=== PATIENT | female | born 1955 ===

== ENCOUNTER 2016-08-22 10:09 | Day surgery (SDC) | payer SELFPAY ==
[2016-08-22 11:22] VITALS: O2SAT 98
[2016-08-22] MEDS ORDERED: Midazolam 2 MG/2 ML VIAL ONE (12:40)
[2016-08-22] MEDS ORDERED: Propofol 10 mg/ml Inj (20 ML) ONE (12:40)
[2016-08-22] MEDS ORDERED: Lactated Ringer's 500 ML IV ONE ×2 (12:44)
[2016-08-22 13:28] VITALS: TEMP 96.8
[2016-08-22 14:23] VITALS: BP 105/58; PULSE 71; RESP 15
== END 2016-08-22 14:00 | disposition home or self-care (01) ==
LOC: C.ENDO 10:09
PROVIDERS: ATTEND Internal Medicine Gastroenterology
DX: Z12.11 Encounter for screening for malignant neoplasm of colon (principal); D12.2 Benign neoplasm of ascending colon; D12.5 Benign neoplasm of sigmoid colon; E05.90 Thyrotoxicosis, unspecified without thyrotoxic crisis or storm; E78.5 Hyperlipidemia, unspecified; Z98.890 Other specified postprocedural states
CPT/HCPCS: 45380; 88305; J2250; J2704; J7120

== ENCOUNTER 2016-09-15 22:14 | Emergency (ER) | payer SELFPAY ==
[2016-09-15] MEDS ORDERED: Sodium Chloride 0.9% 1,000 ML IV ONE (22:54)
[2016-09-15 23:10] LABS: BASO # 0.1 K/uL (0.0-0.2); BASO % 0.7 % (0.0-2.0); EOS # 0.2 K/uL (0.0-0.7); EOS % 1.4 % (0.0-4.0); HEMATOCRIT 40.3 % (34.0-47.0); LYMPH # 4.5 K/uL (1.0-4.3); LYMPH % 40.2 % (20.0-40.0); MEAN CELL VOLUME 87.6 fL (81.0-99.0); MEAN CORPUSCULAR HEMOGLOBIN 29.6 pg (27.0-31.0); MEAN CORPUSCULAR HGB CONC 33.8 g/dL (33.0-37.0); MEAN PLATELET VOLUME 11.1 fL (7.2-11.7); MONO # 0.8 K/uL (0.0-0.8); NRBC % 0.1 % (0.0-2.0); RED CELL DISTRIBUTION WIDTH 12.9 % (11.5-14.5); WHITE BLOOD COUNT 11.1 K/uL (4.8-10.8)
[2016-09-15] MEDS ORDERED: Sodium Chloride 0.9% 1,000 ML ONE (23:10)
[2016-09-15 23:14] LABS: RBC URINE 1 /hpf (0-3); URINE BACTERIA RARE (<OCC); URINE BILIRUBIN NEGATIVE (NEGATIVE); URINE BLOOD NEGATIVE (NEGATIVE); URINE COLOR Straw (YELLOW); URINE GLUCOSE (UA) NORMAL (Normal); URINE KETONE NEGATIVE (NEGATIVE); URINE LEUKOCYTE ESTERASE NEG Leu/uL (Negative); URINE PROTEIN NEGATIVE (NEGATIVE); URINE UROBILINOGEN NORMAL mg/dL (0.2-1.0); WBC URINE 1 /hpf (0-5)
[2016-09-15 23:18] LABS: SODIUM 139 mmol/L (132-148)
[2016-09-15 23:20] LABS: BILIRUBIN,TOTAL 0.7 mg/dL (0.2-1.3); GFR AFRICAN-AMERICAN > 60
[2016-09-15 23:21] LABS: ALB/GLOB RATIO 1.4 (1.0-2.1); ALKALINE PHOSPHATASE 109 U/L (38-126); ALT/SGPT 20 U/L (9-52); AST/SGOT 31 U/L (14-36); BLOOD UREA NITROGEN 17 mg/dL (7-17); CARBON DIOXIDE 28 mmol/L (22-30); GLUCOSE,RANDOM 123 mg/dL (65-105); TOTAL PROTEIN 7.8 g/dL (6.3-8.3)
[2016-09-16] MEDS ORDERED: Iodixanol 320 MG/ML 100 ML BOTTLE IV ONE (00:50)
--- NOTE | 2016-09-16 00:55 | C.PDOC ---
History Of Present Illness <Rj Quan - Last Filed: 09/16/16 01:16> <Juan Reilly - Last Filed: 09/16/16 02:08> A 60 year old female presents to the emergency room with complaints of diffuse abdominal pain for 3 days. Patient denies constipation, fever, chills, nausea, vomiting, diarrhea, any urinary symptoms, or any other complaints. (Rj Quan) History Per: Patient History/Exam Limitations: no limitations Onset/Duration Of Symptoms: Days (3) Current Symptoms Are (Timing): Still Present Severity: Mild Location Of Pain/Discomfort: Diffuse Radiation Of Pain To:: None Quality Of Discomfort: "Pain" Associated Symptoms: denies: Fever, Chills, Nausea, Vomiting, Diarrhea, Constipation, Urinary Symptoms Exacerbating Factors: None Alleviating Factors: None Last Bowel Movement: Today Recent travel outside of the [place]: No <Rj Quan - Last Filed: 09/16/16 01:16> <Juan Reilly - Last Filed: 09/16/16 02:08> Time Seen by Provider: 09/15/16 22:51 Chief Complaint (Nursing): Abdominal Pain Past Medical History Reviewed: Historical Data, Nursing Documentation, Vital Signs - Medical History PMH: Hypercholesterolemia (DIET MANAGEMENT) Denies: Anxiety, Depression, Osteoporosis, Chronic Kidney Disease Family History: States: No Known Family Hx - Social History Hx Alcohol Use: No Hx Substance Use: No - Immunization History Hx Influenza Vaccination: No Hx Pneumococcal Vaccination: No <Rj Quan - Last Filed: 09/16/16 01:16> Review Of Systems Except As Marked, All Systems Reviewed And Found Negative. Constitutional: Negative for: Fever, Chills Gastrointestinal: Positive for: Abdominal Pain. Negative for: Nausea, Vomiting , Diarrhea, Constipation Genitourinary: Negative for: Dysuria, Frequency, Incontinence, Hematuria Musculoskeletal: Negative for: Back Pain <Rj Quan - Last Filed: 09/16/16 01:16> Physical Exam - Physical Exam Appears: Well, Non-toxic Skin: Normal Color, Warm, Dry, No Rash Head: Atraumatic, Normacephalic Eye(s): bilateral: Normal Inspection, PERRL Oral Mucosa: Moist Neck: Normal ROM, No Midline Cervical Tenderness, No Paracervical Tenderness, Supple Cardiovascular: Rhythm Regular Respiratory: Normal Breath Sounds, No Rales, No Rhonchi, No Wheezing Gastrointestinal/Abdominal: Bowel Sounds, Soft, Tenderness (Diffuse tenderness) , No Distention, No Guarding, No Rebound Back: No CVA Tenderness, No Vertebral Tenderness Extremity: Normal ROM, No Tenderness Neurological/Psych: Oriented x3, Normal Speech, Normal Cognition <Rj Quan - Last Filed: 09/16/16 01:16> ED Course And Treatment - Laboratory Results Result Diagrams: 09/15/16 23:03 09/15/16 23:03 Lab Interpretation: Abnormal (+ mild leukocytosis, trop neg.) ECG: Interpreted By Nm ECG Rhythm: Sinus Rhythm ECG Interpretation: Normal Rate From EC O2 Sat by Pulse Oximetry: 100 Pulse Ox Interpretation: Normal - Radiology CXR: Interpreted by Me CXR Interpretation: Yes: No Acute Disease - Other Rad abd x 2 X-Ray: Interpreted by Me (+FOS) Reevaluation Time: 00:53 Reassessment Condition: Improved <Rj Quan - Last Filed: 09/16/16 01:16> - Laboratory Results Result Diagrams: 09/15/16 23:03 09/15/16 23:03 Pulse Ox Interpretation: Normal <Juan Reilly - Last Filed: 09/16/16 02:08> Medical Decision Making <jR Quan - Last Filed: 09/16/16 01:16> <Juan Reilly - Last Filed: 09/16/16 02:08> Medical Decision Making: constip, ? diverticulitis (Rj Quan) Disposition Doctor Will See Patient In The: Office Counseled Patient/Family Regarding: Studies Performed, Diagnosis - Disposition Disposition Time: 01:00 <Rj Quan - Last Filed: 09/16/16 01:16> Counseled Patient/Family Regarding: Studies Performed, Diagnosis <Juan Reilly - Last Filed: 09/16/16 02:08> - Disposition Referrals: Nai Ha DO [Resident] - Disposition: HOME/ ROUTINE Condition: FAIR Prescriptions: Metronidazole [Flagyl] 500 mg PO TID #21 tablet Instructions: Enteritis (ED), Abdominal Pain (ED) Print Language: SOUTH SUDANESE - Clinical Impression Clinical Impression: Abdominal pain, Enteritis - Scribe Statement The provider has reviewed the documentation as recorded by the Scribe <Rj Quan - Last Filed: 09/16/16 01:16> <Juan Reilly - Last Filed: 09/16/16 02:08> - Scribe Statement Chivo Vanegas All medical record entries made by the Scribe were at my direction and personally dictated by me. I have reviewed the chart and agree that the record accurately reflects my personal performance of the history, physical exam, medical decision making, and the department course for this patient. I have also personally directed, reviewed, and agree with the discharge instructions and disposition. (Rj Quan) Physician Patient Turnover Patient Signed Over To: Juan Reilly Handoff Comments: f/u CT abd <Rj Quan - Last Filed: 09/16/16 01:16>
[2016-09-16 01:19] VITALS: PULSE 65; RESP 18; TEMP 97.5
--- NOTE | 2016-09-16 01:54 | CT ---
EXAM: CT Abdomen and Pelvis With Intravenous Contrast CLINICAL HISTORY: 60 years old, female; Pain; Abdominal pain; Additional info: Epigastric pain TECHNIQUE: Axial computed tomography images of the abdomen and pelvis with intravenous contrast. This CT exam was performed using one or more of the following dose reduction techniques: automated exposure control, adjustment of the mA and/or kV according to patient size, and/or use of iterative reconstruction technique. Coronal and sagittal reformatted images were created and reviewed. CONTRAST: 100 mL of [id number] administered intravenously. EXAM DATE/TIME: 09/15/2016 11:49 PM COMPARISON: There are no prior studies for comparison. FINDINGS: Lower thorax: Heart size is normal. There is dependent atelectasis at the lung bases ABDOMEN: Liver: There is fatty infiltration of the liver. Gallbladder and bile ducts: Gallbladder is partially distended. Common bile duct is unremarkable. Pancreas: Pancreas is mildly atrophic. Spleen: Spleen is unremarkable. There is a very small accessory spleen in the left upper quadrant. Adrenals: unremarkable Kidneys and ureters: unremarkable Stomach and bowel: Stomach is partially distended. There is mild prominence of the gastric antral wall. Rotation is normal. There is mild proximal jejunal wall and fold thickening. There is no obstruction. Terminal ileum is unremarkable. Appendix is unremarkable. There is moderate stool in the colon. Appendix: See above. PELVIS: Bladder: unremarkable Reproductive: Uterus and left adnexa are unremarkable. There is a 2.8 x 3.4 x 3.7 cm right adnexal cyst. ABDOMEN and PELVIS: Intraperitoneal space: There is no free air or free fluid. Bones/joints: There are degenerative changes in the osseus structures. There is anterior listhesis L4 and L5. There is retrolisthesis L5 on S1. Soft tissues: unremarkable Vasculature: Vascular structures are unremarkable. Lymph nodes: There is no pathologic adenopathy. IMPRESSION: Fatty liver, no acute solid visceral abnormality; mild prominence of the gastric antral wall, true thickening versus under distention; enteritis; right adnexal cyst Additional findings as described above.
[2016-09-16 02:18] VITALS: BP 107/68; O2SAT 99
--- NOTE | 2016-09-16 13:43 | RAD ---
PROCEDURE: Radiographs of the chest and abdomen (obstructive series) HISTORY: Abdominal pain. COMPARISON: September 16, 2016. CT abdomen and pelvis TECHNIQUE: AP radiograph of the chest, with upright and supine radiographs of the abdomen. FINDINGS: CHEST: Lungs: Clear. Cardiovascular: Normal size heart. No pulmonary vascular congestion. Pleura: No pleural fluid. No pneumothorax. Other findings: None. ABDOMEN AND PELVIS: Bowel: Constipation without fecal impaction or obstruction. Free air: None. Bones: Unremarkable. Other findings: None. IMPRESSION: No acute findings related to/accounting for the clinical presentation.
[2016-09-16 17:06] LABS: CHLORIDE 99 mmol/L (98-107)
--- NOTE | 2016-09-16 17:06 | CARD ---
APPROVED REPORT EKG Measurement Heart [id number] <Conclusion> Normal sinus rhythm Nonspecific ST and T wave abnormality Abnormal ECG
== END 2016-09-16 02:17 | disposition home or self-care (01) ==
LOC: C.ER 22:14
DX: K52.9 Noninfective gastroenteritis and colitis, unspecified (principal); R10.84 Generalized abdominal pain
CPT/HCPCS: 74022; 74177; 80053; 81001; 83690; 84484; 85025; 93005; 96361; 96374; 96375; 99285; J1885; J7040; Q9967

== ENCOUNTER 2018-08-14 20:16 | Emergency (ER) | payer SELFPAY ==
[2018-08-14 20:16] VITALS: BMI 32.0
[2018-08-14 20:33] VITALS: BP 107/66; PULSE 89; RESP 18; TEMP 98.3; O2SAT 96
--- NOTE | 2018-08-14 21:54 | C.PDOC ---
History Of Present Illness 62 year old female presents to ED with complaint of headache for the past 2 days with associated generalized body aches, nausea, and photosensitivity. She complains of g Patient has a PMHx of hyperlipidemia. She states that she took an Advil at 3pm with minimal improvement. She also complains of nausea. Patient denies fever, cough, and vomiting. Time Seen by Provider: 08/14/18 20:37 Chief Complaint (Nursing): Headache History Per: Patient History/Exam Limitations: no limitations Onset/Duration Of Symptoms: Days (2) Current Symptoms Are (Timing): Still Present Quality: "Pain" Preceeding Symptoms: None Associated Symptoms: Vomiting. denies: Nausea Past Medical History Reviewed: Historical Data, Nursing Documentation, Vital Signs Vital Signs: Last Vital Signs Temp 98.3 F 08/14/18 20:30 Pulse 89 08/14/18 20:30 Resp 18 08/14/18 20:30 BP 107/66 08/14/18 20:30 Pulse Ox 96 08/14/18 20:30 - Medical History PMH: Hypercholesterolemia (DIET MANAGEMENT) Denies: Anxiety, Depression, Osteoporosis, Chronic Kidney Disease Surgical History: No Surg Hx Family History: States: Unknown Family Hx - Social History Hx Alcohol Use: No Hx Substance Use: No - Immunization History Hx Influenza Vaccination: No Hx Pneumococcal Vaccination: No Review Of Systems Constitutional: Positive for: Malaise. Negative for: Fever, Chills, Weakness Respiratory: Negative for: Cough Gastrointestinal: Positive for: Nausea. Negative for: Vomiting Neurological: Positive for: Headache (to the back of the head ). Negative for: Weakness, Numbness, Dizziness Physical Exam - Physical Exam Appears: Well, Non-toxic, No Acute Distress Skin: Normal Color, Warm, Dry Head: Atraumatic, Normacephalic Eye(s): bilateral: Normal Inspection, PERRL, Photophobia Ear(s): Bilateral: Normal Neck: Normal ROM, Supple Chest: Symmetrical, No Deformity Cardiovascular: Rhythm Regular, No Murmur Respiratory: No Accessory Muscle Use, No Rales, No Rhonchi, No Wheezing Gastrointestinal/Abdominal: Soft, No Tenderness Extremity: Capillary Refill (<2 seconds) Neurological/Psych: Oriented x3, Normal Speech, Normal Cognition ED Course And Treatment O2 Sat by Pulse Oximetry: 96 (in RA) Disposition Counseled Patient/Family Regarding: Diagnosis, Need For Followup, Rx Given - Disposition Referrals: [facility] [Outside] Disposition: HOME/ ROUTINE Disposition Time: 22:52 Condition: STABLE Additional Instructions: Continue Fiorcet as instructed for Migraines Rest Follow up in clinic 1-2 days Return to ED if symptoms worsen Prescriptions: Acetaminophen/Butalbital/Caf [Fioricet] 1 tab PO Q4 PRN #30 tab PRN Reason: Migraine Headache Instructions: Migraine Headache (DC) Forms: [employer] (Ugandan) Print Language: GERMAN - Clinical Impression Clinical Impression: Migraine, Headache - PA / AG SERVICE MANAGER / Resident Statement MD/DO has reviewed & agrees with the documentation as recorded. (Gina Lieberman) - Scribe Statement The provider has reviewed the documentation as recorded by the Scribe (Gina Lieberman) All medical record entries made by the Scribe were at my direction and personally dictated by me. I have reviewed the chart and agree that the record accurately reflects my personal performance of the history, physical exam, medical decision making, and the department course for this patient. I have also personally directed, reviewed, and agree with the discharge instructions and disposition.
[2018-08-14] MEDS ORDERED: Apap-Butalbital-Caffeine 325-50-40mg Tab PO STA (22:02)
[2018-08-14] MEDS ORDERED: Apap-Butalbital-Caffeine 325-50-40mg Tab ONE (22:12)
== END 2018-08-14 22:58 | disposition home or self-care (01) ==
LOC: C.ER 20:16
DX: G43.909 Migraine, unspecified, not intractable, without status migrainosus (principal)